=== PATIENT | female | born 1990 | race Caucasian/White ===

== ENCOUNTER 2020-12-04 14:04 | Emergency (ER) | payer BC ==
--- NOTE | 2020-12-04 15:00 | EDM.PDOC ---
ED HPI GENERAL MEDICAL PROBLEM - General Chief Complaint: Upper Extremity Injury/Pain Stated Complaint: RT ARM PAIN Time Seen by Provider: 12/04/20 14:45 Source of Information: Reports: Patient, RN History Limitations: Reports: No Limitations - History of Present Illness INITIAL COMMENTS - FREE TEXT/NARRATIVE: Patient fell down steep 9 stairs at her cabin this morning about 10:30 AM. First I was worried about her tailbone as this is where she hurt the most but as the morning progressed the swelling on her right forearm began to swell and the abrasion started to bruise. She is having pain with movement. She has had Tylenol for pain which seemed to help somewhat. Onset: Today, Sudden Duration: Getting Worse Location: Reports: Upper Extremity, Right, Other (Buttocks/tailbone) Quality: Reports: Ache Severity: Moderate Improves with: Reports: Immobilization Worsens with: Reports: Movement Context: Reports: Trauma Associated Symptoms: Reports: No Other Symptoms Treatments COMBER TENDER: Reports: Acetaminophen - Related Data Allergies Allergy/AdvReac Type Severity Reaction Status Date / Time No Known Allergies Allergy Verified 12/04/20 14:20 Home Meds: Home Meds Budesonide/Formoterol [Symbicort 80-4.5 MCG] 1 puff INH BEDTIME 12/04/20 [History] Past Medical History - Past Health History Medical/Surgical History: Denies Medical/Surgical History Social & Family History - Tobacco Use Tobacco Use Status *Q: Never Tobacco User Review of Systems - Review of Systems Review Of Systems: See Below Constitutional: Reports: No Symptoms Respiratory: Reports: No Symptoms Cardiovascular: Reports: No Symptoms Musculoskeletal: Reports: Arm Pain, Other (Tailbone pain) Skin: Reports: Bruising, Erythema, Lesions (Abrasion to right forearm superficial) Neurological: Reports: No Symptoms. Denies: Confusion, Dizziness, Headache, Numbness, Difficulty Walking, Gait Disturbance Psychiatric: Reports: No Symptoms. Denies: Confusion ED EXAM, GENERAL - Physical Exam Exam: See Below Free Text/Narrative:: Patient fell about 1030 this morning down a steep set of stairs in a cabin. She landed on her buttocks and was originally worried about her tailbone and increased pain there. This is much improved however the pain in her right forearm and the swelling in her right forearm is causing her for concern. She has had increased pain with movement and now there is swelling and bruising to the area. Superficial abrasion the length of the forearm. Bruising the length of the forearm on the ulnar side. Patient has full range of motion at the elbow and wrist and able to make a fist. Exam Limited By: No Limitations General Appearance: Alert, Mild Distress Respiratory/Chest: No Respiratory Distress, Lungs Clear, Normal Breath Sounds Cardiovascular: Normal Peripheral Pulses, Regular Rate, Rhythm, No Edema Peripheral Pulses: 2+: Radial (L), Radial (R) Extremities: Normal Range of Motion, Arm Pain (Right forearm pain predominantly radial side, tender to touch, bruising, redness), Redness Neurological: Alert, Oriented, CN II-XII Intact Psychiatric: Normal Affect Skin Exam: Warm, Erythema, Increased Warmth, Wound/Incision (Superficial abrasion) Course - Vital Signs Last Recorded V/S: Last Vital Signs Temp 36.2 C 12/04/20 14:24 Pulse 82 12/04/20 14:24 Resp 14 12/04/20 14:24 BP 133/81 12/04/20 14:24 Pulse Ox 97 12/04/20 14:24 - Orders/Labs/Meds Orders: Active Orders 24 hr Category Date Time Status Forearm 2V Rt [CR] Stat Exams 12/04/20 14:47 Taken Review of x-ray shows no fracture, malalignment, dislocation of the forearm. - Radiology Interpretation Free Text/Narrative:: No fracture or malalignment or dislocation of right ulna or radius - Re-Assessments/Exams Free Text/Narrative Re-Assessment/Exam: 12/04/20 15:05 Contusion of right forearm. Will instruct patient to rest ice compress and elevate her arm for comfort. She may use Tylenol or ibuprofen for pain relief. She may return to clinic or ER if she notices increased pain or has any difficulty with range of motion. Departure - Departure Time of Disposition: 15:34 Disposition: Home, Self-Care 01 Condition: Good Clinical Impression: Contusion Qualifiers: Encounter type: initial encounter Contusion area: forearm Laterality: right Qualified Code(s): S50.11XA - Contusion of right forearm, initial encounter - Discharge Information *PRESCRIPTION DRUG MONITORING PROGRAM REVIEWED*: No Instructions: Contusion, [id number] Referrals: PCP,None [Primary Care Provider] - Forms: ED Department Discharge Additional Instructions: Rest ice elevation and compression, pain management with Tylenol and/or ibuprofen. Sepsis Event Note (ED) - Evaluation Sepsis Screening Result: No Definite Risk - Focused Exam Vital Signs: Vital Signs Temp Pulse Resp BP Pulse Ox 12/04/20 14:24 36.2 C 82 14 133/81 97 - My Orders Last 24 Hours: My Active Orders 12/04/20 14:47 Forearm 2V Rt [CR] Stat - Assessment/Plan Last 24 Hours: My Active Orders 12/04/20 14:47 Forearm 2V Rt [CR] Stat Assessment:: Contusion right forearm Plan: Rest ice elevation and compression of right forearm for comfort. May use ibuprofen or Tylenol for pain relief. Return to ER or clinic if increased pain, swelling difficulty with range of motion or any decreased sensation.
--- NOTE | 2020-12-06 09:27 | CR ---
Forearm 2V Rt CLINICAL HISTORY: Trauma FINDINGS: There is no acute fracture within the forearm. There is some mid forearm soft tissue swelling which may represent hematoma. IMPRESSION: No fracture Soft tissue swelling
== END 2020-12-04 15:34 | disposition home or self-care (01) ==
LOC: JP.ED 14:04
DX: S50.11XA Contusion of right forearm, initial encounter (principal); W10.8XXA Fall (on) (from) other stairs and steps, initial encounter
CPT/HCPCS: 73090-26-RT; 73090-RT; 99283-25